=== PATIENT | male | born 1960 ===

== ENCOUNTER 2021-01-06 10:11 | Emergency (ER) | payer OTHER ==
--- NOTE | 2021-01-06 12:15 | Event Note ---
ED Screening Note Date of service: 01/06/21 Time: 12:14 ED Screening Note: 60-year-old male patient with history of kidney stones presents to the emergency department with complaints of burning with urination and hematuria for the last few months. The symptoms have been occurring intermittently. States his symptoms occur primarily after physical exertion. Also endorses pain in his right lower back. He is not currently under the care of a urologist. No recent trauma. General: Awake, appropriately interactive, no acute distress. Neck: Supple. Full range of motion intact. Cardiovascular: Normal peripheral perfusion. Pulmonary: No respiratory distress. Patient is speaking normally without use of accessory muscles. Skin: No apparent rashes or lesions. Neurological: No facial asymmetry. Speech is clear. Follows commands. Patient is alert and oriented. Musculoskeletal: Moves all four extremities spontaneously with normal range of motion. Psych: Cooperative. Appropriate mood and affect. Labs and urinalysis ordered. Decision to obtain imaging deferred to additional ED providers following complete history and comprehensive physical assessment. I have greeted and performed a focused rapid initial assessment of this patient. A comprehensive ED assessment and evaluation of the patient, analysis of all test results, and completion of the medical decision-making process will be conducted by additional ED providers. This initial assessment/diagnostic orders/clinical plan/treatment(s) is/are subject to change based on patients health status, clinical progression and re-assessment. Further treatment and workup at subsequent clinical provider's discretion. Patient/guardian urged not to elope from the ED as their condition may be serious if not clinically assessed and managed.
[2021-01-06 13:03] LABS: Basophils # (Auto) 0.1 K/mm3 (0.0-0.1); Basophils % (Auto) 0.9 % (0.0-1.8); Eosinophils # (Auto) 0.2 K/mm3 (0.0-0.4); Eosinophils % (Auto) 3.2 % (0.0-4.3); Hematocrit 45.6 % (35.5-45.6); Hemoglobin 15.2 gm/dl (11.8-15.2); Lymphocytes # (Auto) 1.6 K/mm3 (1.2-5.4); Lymphocytes % (Auto) 24.6 % (13.4-35.0); Mean Corpuscular HGB Conc 33 % (32-34); Mean Corpuscular Volume 97 fl (84-94); Monocytes # (Auto) 0.7 K/mm3 (0.0-0.8); Monocytes % (Auto) 10.8 % (0.0-7.3); Platelet Count 246 K/mm3 (140-440); Red Blood Count 4.71 M/mm3 (3.65-5.03); Red Cell Distribution Width 13.9 % (13.2-15.2)
[2021-01-06 13:28] LABS: Alanine Aminotransferase 13 units/L (7-56); Blood Urea Nitrogen 18 mg/dL (9-20); Calcium 9.1 mg/dL (8.4-10.2); Hemolysis Index 9
[2021-01-06 13:35] LABS: BUN/Creatinine Ratio 30
--- NOTE | 2021-01-06 14:24 | Emergency Department Report ---
ED Dysuria HPI - HPI Chief Complaint: Abdominal Pain Stated Complaint: BACK/FOOT/GROIN PAIN Time Seen by Provider: 01/06/21 13:35 Duration: 2 Days Location of Discomfort: Other Severity: Mild Symptoms: Dysuria: No, Frequency: No, Suprapubic Pain: No, Flank Pain: No, Feve r: No, Hematuria: No, Abdominal Pain: No, Previous UTI's: No Other History: Patient is a 60-year-old male that comes to the emergency room complaining of some difficulty urinating. He states it happens most when he is working outside in the yard in the heat. However he was concerned because he has a history of kidney stones. He also endorses bilateral lower extremity pain consistent with his diabetic neuropathy. He is on Metformin and glipizide at home. ED Review of Systems ROS: Stated complaint: BACK/FOOT/GROIN PAIN Other details as noted in HPI Comment: All other systems reviewed and negative ED Past Medical Hx - Past Medical History Previous Medical History?: Yes Hx Diabetes: Yes Hx HIV: No Additional medical history: NEUROPATHY. K STONES - Surgical History Additional Surgical History: UNKNOW - Family History Family history: no significant - Social History Smoking Status: Never Smoker Substance Use Type: None - Medications Home Medications: Home Medications Medication Instructions Recorded Confirmed Last Taken Type Gabapentin 200 mg PO BID #60 cap 01/06/21 Unknown Rx Dysuria Exam - Exam General: Vital signs noted. No distress. Alert and acting appropriately. Exam: Yes Moist Mucous Membranes, No CVA Tenderness, No Abdominal Tenderness, No Rigidity or Guarding Labs: Lab Results 01/06/21 01/06/21 Range/Units 12:37 12:37 WBC 6.5 (4.5-11.0) K/mm3 RBC 4.71 (3.65-5.03) M/mm3 Hgb 15.2 (11.8-15.2) gm/dl Hct 45.6 (35.5-45.6) % MCV 97 H (84-94) fl MCH 32 (28-32) pg MCHC 33 (32-34) % RDW 13.9 (13.2-15.2) % Plt Count 246 (140-440) K/mm3 Lymph % (Auto) 24.6 (13.4-35.0) % [place] % (Auto) 10.8 H (0.0-7.3) % Eos % (Auto) 3.2 (0.0-4.3) % Baso % (Auto) 0.9 (0.0-1.8) % Lymph # (Auto) 1.6 (1.2-5.4) K/mm3 [place] # (Auto) 0.7 (0.0-0.8) K/mm3 Eos # (Auto) 0.2 (0.0-0.4) K/mm3 Baso # (Auto) 0.1 (0.0-0.1) K/mm3 Seg Neutrophils % 60.5 (40.0-70.0) % Seg Neutrophils # 3.9 (1.8-7.7) K/mm3 Sodium 136 L (137-145) mmol/L Potassium 4.4 (3.6-5.0) mmol/L Chloride 99.9 (98-107) mmol/L Carbon Dioxide 25 (22-30) mmol/L Anion Gap 16 mmol/L BUN 18 (9-20) mg/dL Creatinine 0.6 L (0.8-1.3) mg/dL Estimated GFR > 60 ml/min BUN/Creatinine Ratio 30 % Glucose 223 H (75-100) mg/dL Calcium 9.1 (8.4-10.2) mg/dL Total Bilirubin 0.40 (0.1-1.2) mg/dL AST 15 (5-40) units/L ALT 13 (7-56) units/L Alkaline Phosphatase 89 (35-129) units/L Total Protein 6.1 L (6.3-8.2) g/dL Albumin 4.0 (3.9-5) g/dL Albumin/Globulin Ratio 1.9 % ED Course Vital Signs 01/06/21 10:56 Temperature 98.2 F Pulse Rate 76 Respiratory 16 Rate Blood Pressure 115/63 O2 Sat by Pulse 96 Oximetry ED Medical Decision Making - Lab Data Result diagrams: 01/06/21 12:37 01/06/21 12:37 - Medical Decision Making Vital Signs 01/06/21 10:56 Temperature 98.2 F Pulse Rate 76 Respiratory 16 Rate Blood Pressure 115/63 O2 Sat by Pulse 96 Oximetry Lab Results 01/06/21 01/06/21 01/06/21 Range/Units 12:37 12:37 14:32 WBC 6.5 (4.5-11.0) K/mm3 RBC 4.71 (3.65-5.03) M/mm3 Hgb 15.2 (11.8-15.2) gm/dl Hct 45.6 (35.5-45.6) % MCV 97 H (84-94) fl MCH 32 (28-32) pg MCHC 33 (32-34) % RDW 13.9 (13.2-15.2) % Plt Count 246 (140-440) K/mm3 Lymph % (Auto) 24.6 (13.4-35.0) % [place] % (Auto) 10.8 H (0.0-7.3) % Eos % (Auto) 3.2 (0.0-4.3) % Baso % (Auto) 0.9 (0.0-1.8) % Lymph # (Auto) 1.6 (1.2-5.4) K/mm3 [place] # (Auto) 0.7 (0.0-0.8) K/mm3 Eos # (Auto) 0.2 (0.0-0.4) K/mm3 Baso # (Auto) 0.1 (0.0-0.1) K/mm3 Seg Neutrophils % 60.5 (40.0-70.0) % Seg Neutrophils # 3.9 (1.8-7.7) K/mm3 Sodium 136 L (137-145) mmol/L Potassium 4.4 (3.6-5.0) mmol/L Chloride 99.9 (98-107) mmol/L Carbon Dioxide 25 (22-30) mmol/L Anion Gap 16 mmol/L BUN 18 (9-20) mg/dL Creatinine 0.6 L (0.8-1.3) mg/dL Estimated GFR > 60 ml/min BUN/Creatinine Ratio 30 % Glucose 223 H (75-100) mg/dL Calcium 9.1 (8.4-10.2) mg/dL Total Bilirubin 0.40 (0.1-1.2) mg/dL AST 15 (5-40) units/L ALT 13 (7-56) units/L Alkaline Phosphatase 89 (35-129) units/L Total Protein 6.1 L (6.3-8.2) g/dL Albumin 4.0 (3.9-5) g/dL Albumin/Globulin Ratio 1.9 % Urine Color Yellow (Yellow) Urine Turbidity Clear (Clear) Urine pH 6.0 (5.0-7.0) Ur Specific [place] 1.021 (1.003-1.030) Urine Protein <15 mg/dl (Negative) mg/dL Urine Glucose (UA) >=500 (Negative) mg/dL Urine Ketones Neg (Negative) mg/dL Urine Blood Neg (Negative) Urine Nitrite Neg (Negative) Urine Bilirubin Neg (Negative) Urine Urobilinogen < 2.0 (<2.0) mg/dL Ur Leukocyte Esterase Neg (Negative) Urine WBC (Auto) 1.0 (0.0-6.0) /HPF Urine RBC (Auto) < 1.0 (0.0-6.0) /HPF Urine Mucus Few /HPF Labs noted. Ua noted. I have sent a urine culture. Patient is not being sent home on antibiotics should he need them please call them. My index of suspicion is low given his urine, vital signs and presentation. I suspect that the patient is getting dehydrated when he is working outside which is making him feel discomfort when he is urinating. He has no evidence of infection. He is diabetic and has hyperglycemia. He states he is taking his home medications but is not watching his diet. We discussed his glucosuria and how that can predispose him to infection. Patient verbalizes understanding. Patient is ambulatory, [id number]. He is taking p.o. He is in no acute distress. He denies chest pain, shortness of breath, abdominal pain. His vital signs remain normal. Patient being discharged home with discharge plan of care including PCP and ur ology follow-up. I have encouraged him to tighten up his diabetic diet so that his blood sugars come back into range. Patient is nonobese and appears to be in relatively good health for his age. - Differential Diagnosis ro k stone/uri Critical care attestation.: If time is entered above; I have spent that time in minutes in the direct care of this critically ill patient, excluding procedure time. ED Disposition Clinical Impression: Neuropathy, Dysuria, Hyperglycemia due to diabetes mellitus Disposition: DC-01 TO HOME OR SELFCARE Is pt being admited?: No Does the pt Need Aspirin: No Condition: Stable Instructions: Diabetes Mellitus Type 2 in Adults (ED) Additional Instructions: follow up with pcp and urology MD referrals below medication as ordered today Prescriptions: Gabapentin 200 mg PO BID #60 cap Referrals: YANA BILL MD [Staff Physician] - 3-5 Days BOYD RICO MD [Staff Physician] - 3-5 Days Time of Disposition: 14:42
[2021-01-06 14:41] LABS: Bilirubin,Urine NEG (Negative); Blood,Urine NEG (Negative); Color,Urine Yellow (Yellow); Mucus,Urine FEW /HPF; Protein,Urine <15 mg/dL mg/dL (Negative); RBC,Urine < 1.0 /HPF (0.0-6.0); Urobilinogen,Urine < 2.0 mg/dL (<2.0)
[2021-01-06] MEDS ORDERED: IBUPROFEN 800 MG TAB PO ONE (14:42)
[2021-01-06 15:28] VITALS: BP 130/75
== END 2021-01-06 15:26 | disposition home or self-care (01) ==
LOC: ED 10:11
DX: E11.65 Type 2 diabetes mellitus with hyperglycemia (principal); E11.40 Type 2 diabetes mellitus with diabetic neuropathy, unspecified; R30.0 Dysuria; Z79.899 Other long term (current) drug therapy
CPT/HCPCS: 36415; 80053; 81001; 85025; 87086

== ENCOUNTER 2021-03-09 07:51 | Day surgery (SDC) | payer OTHER ==
[2021-03-08 10:29] LABS: Blood Urea Nitrogen 11 mg/dL (9-20); Calcium 9.2 mg/dL (8.4-10.2); Hemolysis Index 5
[2021-03-08 10:40] LABS: BUN/Creatinine Ratio 18
[2021-03-08 10:50] LABS: Hematocrit 44.3 % (35.5-45.6); Hemoglobin 15.3 gm/dl (11.8-15.2); Mean Corpuscular HGB Conc 34 % (32-34); Mean Corpuscular Volume 97 fl (84-94); Platelet Count 252 K/mm3 (140-440); Red Blood Count 4.56 M/mm3 (3.65-5.03); Red Cell Distribution Width 13.9 % (13.2-15.2)
[~2021-03-09 07:51] MED LIST: WATER FOR IRRIG STERILE 1,500 ML BOTTLE IR ONE; WATER FOR IRRIG STERILE 2000 ML IR ONE
--- NOTE | 2021-03-09 08:48 | Anesthesia Day of Surgery ---
Anesthesia Day of Surgery - Day of Surgery Patient Examined: Yes Patient H&P Reviewed: Yes Patient is NPO: Yes
--- NOTE | 2021-03-09 08:53 | Anesthesia Consultation ---
Anesthesia Consult and Med Hx Date of service: 03/09/21 - Airway Anesthetic Teeth Evaluation: Good (Missing) ROM Head & Neck: Adequate Mental/Hyoid Distance: Adequate Mallampati Class: Class I Intubation Access Assessment: Good - Pre-Operative Health Status ASA Pre-Surgery Classification: ASA2 Proposed Anesthetic Plan: General - Pulmonary Hx Smoking: Yes (1/2 PPD X 40 YRS) Hx Sleep Apnea: No (EDDIE PRE SCREEN LOW RISK) - Cardiovascular System Hx Hypertension: No - Central Nervous System Hx Neuromuscular Disorder: Yes (Neuropathy left hand) Hx Back Pain: Yes (WITH ALEXANDRA LEG PAIN) Hx Psychiatric Problems: No - Gastrointestinal Hx Gastroesophageal Reflux Disease: No - Endocrine Hx Non-Insulin Dependent Diabetes: Yes - Hematic Hx Anemia: No - Other Systems Hx Cancer: No Hx Obesity: No
[2021-03-09] MEDS ORDERED: ceFAZolin/STERILE WATER 2 GM/20 ML SYRINGE IV NR (09:00)
[2021-03-09] MEDS ORDERED: HYDROmorphone 1 MG/1 ML INJ IV PRN (09:00)
[2021-03-09] MEDS ORDERED: MIDAZOLAM 2 MG/2 ML INJ IV NR (09:00)
[2021-03-09] MEDS ORDERED: ONDANSETRON 4 MG/2 ML INJ IV PRN (09:00)
[2021-03-09] MEDS ORDERED: LACTATED RINGERS 1,000 ML IV SCH (09:00)
[2021-03-09] MEDS ORDERED: propofoL 200 MG/20 ML VIAL IV ONE (09:06)
[2021-03-09] MEDS ORDERED: HYDROmorphone 1 MG/1 ML INJ ONE (09:06)
[2021-03-09] MEDS ORDERED: LIDOCAINE MPF (2%) 20 MG/1 ML VIAL 5 ML ONE (09:07)
[2021-03-09] MEDS ORDERED: WATER FOR IRRIG STERILE 2000 ML IR ONE (09:35)
[2021-03-09] MEDS ORDERED: PHENYLEPHRINE/NS 1,000 MCG/10 ML SYRINGE (OR USE) IV ONE (09:49)
[2021-03-09] MEDS ORDERED: WATER FOR IRRIG STERILE 1,500 ML BOTTLE IR ONE (10:01)
[2021-03-09] MEDS: HYDROmorphone 1 MG/1 ML INJ IV PRN ×2 (10:35→10:45)
--- NOTE | 2021-03-09 10:56 | XRay Report ---
INTRAOPERATIVE FLUOROSCOPY INDICATION / CLINICAL INFORMATION: CALCULUS OF BLADDER. TECHNIQUE: Intraoperative spot images were obtained during the procedure. FINDINGS: Intraoperative fluoroscopy images See operative/procedure note by performing physician for full details. Fluoroscopy Time: 0.1 minutes. Fluoroscopy Images: 1. Signer Name: Ariel Clifton MD Signed: 03/09/2021 10:52 AM Workstation Name: [id number]
--- NOTE | 2021-03-09 11:23 | Operative Report ---
DATE OF SURGERY: 03/09/2021 PREOPERATIVE DIAGNOSIS: Bladder stone. POSTOPERATIVE DIAGNOSIS: Bladder stone. PROCEDURE: Cystolitholapaxy with lithotripsy, complex greater than 2.5 cm. ATTENDING: Delfin Joiner M.D. DIRECTOR FAMILY: None. ESTIMATED BLOOD LOSS: 25 mL. SPECIMENS: Bladder stone. DRAINS: A 20-Maced[place] Leung catheter. COMPLICATIONS: None. INDICATIONS FOR PROCEDURE: The patient is a 61-year-old man who presented with hematuria and significant lower urinary tract symptoms. Evaluation revealed a large bladder stone. The patient did not wish to have his prostate addressed since it would keep him out of work longer. He wished slowly to have the bladder stone addressed. DESCRIPTION OF PROCEDURE: After the induction of suitable anesthesia and proper positioning and preparation in a dorsal lithotomy position, a cystoscope was used to enter the bladder under direct visualization. The patient did have an enlarged prostate with an obstructing median lobe. The rest of his prostate was not overly large. It appears that most of his obstruction was from the median lobe. Upon entering the bladder, there were no other abnormalities other than the large bladder stone. Using a large holmium laser fiber, the bladder stone was then methodically and patiently dusted. We used 1.5 cruz at a rate of 0.8. It took approximately 30 minutes to dust the stone and we had very good dusting with only small fragments. Most of the fragments were irrigated out. A cold cup biopsy forceps was then used to retrieve the remaining small fragments or to crush the remaining small fragments. When the procedure was complete, there were no other stone fragments or even particles in the bladder. It was completely clean. Thus, the patient should not have a recurrence of bladder stones anytime soon. The cystoscope was then removed, and a Leung catheter was placed. This will be removed. The patient will come to the office the next day to have the catheter removed. The patient was then awakened from anesthesia and transported to the recovery room in stable condition. He tolerated the procedure well. TID: [id number] RECEIPT: [id number] ABBIE/JESI
[2021-03-09 13:46] VITALS: BP 132/70
--- NOTE | 2021-03-09 14:51 | Post Anesthesia Evaluation ---
- Post Anesthesia Evaluation Patient Participated: Yes Airway Patent: Yes Stable Respiratory Function: Yes Nausea/Vomiting: No Temp > 96.8F: Yes Pain Manageable: Yes Adequeate Hydration: Yes Anesthesia Complications: No Block Receding Appropriately: Not Applicable Patient on Ventilator: No
== END 2021-03-09 13:10 | disposition home or self-care (01) ==
LOC: OR 07:51
PROVIDERS: ATTEND Urology
PROC: 0TCB8ZZ Extirpation of Matter from Bladder, Via Natural or Artificial Opening Endoscopic (ICD-10-PCS; principal; 2021-03-09)
DX: N21.0 Calculus in bladder (principal); R31.0 Gross hematuria; E11.9 Type 2 diabetes mellitus without complications; F17.210 Nicotine dependence, cigarettes, uncomplicated; Z79.84 Long term (current) use of oral hypoglycemic drugs; Z79.899 Other long term (current) drug therapy; Z98.890 Other specified postprocedural states; Z20.822 Contact with and (suspected) exposure to COVID-19
CPT/HCPCS: 36415; 52318; 74018; 80048; 82962; 85027; A4217; C1758; J0690; J1170; J2250; J2370; J2704; J7120; U0003